=== PATIENT | male | born 1955 | race Caucasian/White ===

== ENCOUNTER 2016-05-19 12:10 | Emergency (ER) | payer MEDICARE, OTHER ==
--- NOTE | 2016-05-19 13:42 | RAD ---
THREE VIEWS RIGHT SHOULDER: History: Fall, right shoulder pain. FINDINGS: AP internally/externally scapular Y views of the right shoulder obtained. Images demonstrate no evidence of right shoulder fractures, subluxations, or bony lesions. IMPRESSION: Normal three views right shoulder. POS: [facility]
== END 2016-05-19 13:25 | disposition home or self-care (01) ==
LOC: NAV ERS 12:10
DX: S40.011A Contusion of right shoulder, initial encounter (principal); I10 Essential (primary) hypertension; J45.909 Unspecified asthma, uncomplicated; F17.210 Nicotine dependence, cigarettes, uncomplicated; Z79.899 Other long term (current) drug therapy; W19.XXXA Unspecified fall, initial encounter

== ENCOUNTER 2016-06-03 19:54 | Emergency (ER) | payer MEDICARE, OTHER ==
[2016-06-03 20:50] LABS: Bilirubin Negative (Negative); Blood, Urine Trace (Negative); Glucose, Urine (Dipstick) Negative (Negative); Ketone, Urine Negative (Negative); Nitrite Negative (Negative); Protein, Urine (Dipstick) Negative (Neg-Trace); Urobilinogen 0.2 mg/dL (0.2-1.0)
[2016-06-03 20:57] LABS: Bacteria/HPF Rare-Few HPF (None Seen); RBC/HPF 0-3 HPF (0-3); Squamous Epithelial None Seen HPF (0-3); WBC/HPF None Seen HPF (0-3)
[2016-06-03 21:09] LABS: #Basophils 0.1 thou/uL (0.0-0.2); #Eosinphils 0.3 thou/uL (0.0-0.7); #Lymphocytes 2.8 thou/uL (1.20-3.40); #Monocytes 0.9 thou/uL (0.11-0.59); %Basophils 1.3 % (0.0-1.0); %Eosinophils 2.8 % (0.0-10.0); %Monocytes 9.6 % (0.0-10.0); Hematocrit 39.3 % (42.0-52.0); Red Blood Cell (RBC) Count 4.15 mill/uL (4.70-6.10); White Blood Cell (WBC) Count 9.1 thou/uL (4.8-10.8)
[2016-06-03] MEDS ORDERED: Sodium Chloride 0.9% 1,000 ML ONE (21:09)
[2016-06-03] MEDS ORDERED: Ketorolac Tromethamine 30 MG/ML VIAL ONE (21:09)
[2016-06-03 21:27] LABS: ALT (SGPT) 15 U/L (0-55); AST (SGOT) 17 U/L (5-34); Alkaline Phosphatase 95 U/L (40-150); Anion Gap 16 mmol/L (10-20); BUN (Urea Nitrogen) 15 mg/dL (8.4-25.7); Bilirubin, Total 0.3 mg/dL (0.2-1.2); Calc. Creatinine Clearance 0 mL/min (70-130); Calcium 8.8 mg/dL (7.8-10.44); Carbon Dioxide 21 mmol/L (22-29); Chloride 98 mmol/L (98-107); Estimated GFR-MDRD Greater than 90; Globulin 2.9 g/dL (2.4-3.5); Lipase 10 U/L (8-78)
--- NOTE | 2016-06-03 23:47 | CT ---
CT ABDOMEN AND PELVIS 06/03/2016 PROVIDED CLINICAL HISTORY: Bilateral flank pain. FINDINGS: The visualized lung bases are free of significant opacity. The solid abdominal organs are suboptimally evaluated without IV contrast but demonstrate an unremar kable unenhanced CT appearance. No evidence for urinary tract calculi or hydronephrosis. There is conspicuous colonic fecal retention suggesting constipation. There is no evidence for gauri l obstruction. Sigmoid colon and descending colon diverticula are seen without CT evidence for dive rticulitis. The appendix appears normal. Vascular calcifications are noted involving the abdominal aorta and its branches. Stent material involves the right external iliac artery. The osseous structures demonstrate no concerning osteoblastic or osteolytic lesions. IMPRESSION: 1. No evidence for urinary tract calculi or hydronephrosis. 2. Findings suggesting constipation. POS: [facility]
== END 2016-06-03 22:23 | disposition home or self-care (01) ==
LOC: NAV ERS 19:54
DX: M54.5 Low back pain (principal); F17.210 Nicotine dependence, cigarettes, uncomplicated; Z79.891 Long term (current) use of opiate analgesic; Z79.899 Other long term (current) drug therapy
CPT/HCPCS: 74176; 80053; 81003; 81015; 83690; 85025; 96361; 96374; J1885; J7050

== ENCOUNTER 2016-09-07 14:14 | Emergency (ER) | payer MEDICARE, OTHER ==
[2016-09-07] MEDS ORDERED: Sodium Chloride 0.9% 1,000 ML ONE ×2 (14:44→16:24)
[2016-09-07 15:31] LABS: #Basophils 0.1 thou/uL (0.0-0.2); #Eosinphils 0.2 thou/uL (0.0-0.7); #Lymphocytes 1.3 thou/uL (1.20-3.40); #Monocytes 0.8 thou/uL (0.11-0.59); #Neutrophils 11.9 thou/uL (1.40-6.50); %Basophils 0.6 % (0.0-1.0); %Eosinophils 1.3 % (0.0-10.0); %Lymphocytes 9.2 % (21.0-51.0); %Monocytes 5.3 % (0.0-10.0); %Neutrophils 83.5 % (42.0-75.0); Hemoglobin 14.2 g/dL (14.0-18.0); Mean Corpuscular HGB CONC 34.4 g/dL (32.0-36.0); Mean Corpuscular Hemoglobin 32.2 pg (27.0-31.0); Mean Corpuscular Volume 93.8 fl (80.0-94.0); Mean Platelet Volume 7.2 fL (7.4-10.4); Platelet Count 235 thou/uL (130-400); RBC Distribution Width 10.9 % (11.5-14.5); White Blood Cell (WBC) Count 14.2 thou/uL (4.8-10.8)
--- NOTE | 2016-09-07 15:38 | CT ---
CT HEAD WITHOUT CONTRAST: Technique: Multiple axial tomograms were obtained through the head without IV enhancement. History: Weakness. Comparison: CT 11-30-14 FINDINGS: Ventricles have normal size and position. No evidence of mass, hemorrhage, or acute cortical infarct . Sinuses and mastoids are well aerated. IMPRESSION: No evidence of acute abnormality. POS: [facility]
[2016-09-07 15:46] LABS: CKMB 2.2 ng/mL (0-6.6); Troponin I Less than 0.010 ng/mL (< 0.028)
[2016-09-07 15:51] LABS: INR-International Normal Ratio 1.1; PTT 28.8 SEC (22.9-36.1); Prothrombin Time 13.8 SEC (12.0-14.7)
[2016-09-07 16:00] LABS: ALT (SGPT) 14 U/L (8-55); AST (SGOT) 16 U/L (5-34); Albumin 3.7 g/dL (3.5-5.0); Alkaline Phosphatase 91 U/L (40-150); Anion Gap 12 mmol/L (10-20); BUN (Urea Nitrogen) 15 mg/dL (8.4-25.7); Bilirubin, Total 0.4 mg/dL (0.2-1.2); CK (CPK) 69 U/L (30-200); Calc. Creatinine Clearance 0 mL/min (70-130); Calcium 8.2 mg/dL (7.8-10.44); Carbon Dioxide 23 mmol/L (22-29); Chloride 99 mmol/L (98-107); Estimated GFR-MDRD Greater than 90; Globulin 2.6 g/dL (2.4-3.5); Glucose 99 mg/dL (70-105); Protein, Total 6.3 g/dL (6.0-8.3); Sodium 130 mmol/L (136-145)
--- NOTE | 2016-09-07 16:23 | RAD ---
PORTABLE CHEST: History: Weakness. FINDINGS: Lungs appear clear of infiltrate. Perhaps some mild atelectatic changes in the left lung base. CP an gles are sharp. Heart size is normal. Mild aortic calcification. IMPRESSION: No evidence of acute process. POS: [facility]
[2016-09-07] MEDS ORDERED: Acetaminophen 500 MG TAB ONE (16:24)
== END 2016-09-07 16:55 | disposition home or self-care (01) ==
LOC: NAV ERS 14:14
DX: E86.0 Dehydration (principal); E87.1 Hypo-osmolality and hyponatremia; R53.1 Weakness; I73.9 Peripheral vascular disease, unspecified; I10 Essential (primary) hypertension; J45.909 Unspecified asthma, uncomplicated; F17.210 Nicotine dependence, cigarettes, uncomplicated; Z79.899 Other long term (current) drug therapy; Z79.891 Long term (current) use of opiate analgesic
CPT/HCPCS: 36415; 70450; 71010; 80053; 82553; 83880; 84484; 85025; 85610; 85730; 93005; 94760; 96360; J7050

== ENCOUNTER 2016-10-02 13:34 | Emergency (ER) | payer MEDICARE, OTHER ==
[2016-10-02] MEDS ORDERED: Lidocaine Viscous Sol 2% 15 ml UD Cup ONE (14:13)
[2016-10-02] MEDS ORDERED: Mag-Al Plus 1200 MG/1200 MG/120 MG/30 ML UDCUP ONE (14:13)
[2016-10-02] MEDS ORDERED: Pantoprazole 40 MG VIAL ONE (14:13)
[2016-10-02] MEDS ORDERED: Ondansetron HCl/PF 4 MG/2 ML Vial ONE (14:19)
[2016-10-02 14:46] LABS: #Basophils 0.1 thou/uL (0.0-0.2); #Eosinphils 0.3 thou/uL (0.0-0.7); #Lymphocytes 1.6 thou/uL (1.20-3.40); #Monocytes 0.7 thou/uL (0.11-0.59); #Neutrophils 4.9 thou/uL (1.40-6.50); %Basophils 1.1 % (0.0-1.0); %Eosinophils 3.4 % (0.0-10.0); %Lymphocytes 21.9 % (21.0-51.0); %Monocytes 8.8 % (0.0-10.0); %Neutrophils 64.8 % (42.0-75.0); Hemoglobin 14.7 g/dL (14.0-18.0); Mean Corpuscular HGB CONC 33.5 g/dL (32.0-36.0); Mean Corpuscular Hemoglobin 31.6 pg (27.0-31.0); Mean Corpuscular Volume 94.2 fl (80.0-94.0); Platelet Count 254 thou/uL (130-400); RBC Distribution Width 10.9 % (11.5-14.5); Red Blood Cell (RBC) Count 4.65 mill/uL (4.70-6.10); White Blood Cell (WBC) Count 7.5 thou/uL (4.8-10.8)
--- NOTE | 2016-10-02 14:51 | RAD ---
TWO VIEWS ABDOMEN UPRIGHT VIEW OF THE CHEST: History: Burning sensation in the abdomen. FINDINGS: Supine and upright views of the abdomen and upright view of the chest shows nonspecific, nonobstruct ed bowel gas pattern. A moderate amount of stool retention is seen in the colon. Air is seen in the rectum. No free air or airfluid levels are seen on the upright examination. The cardiomediastinal silhouette is normal in size with atherosclerotic calcifications in the aorta. There is no evidence of consolidation, mass, or pleural effusion. IMPRESSION: 1. No evidence of obstruction. 2. Moderate stool retention in the colon. POS: [facility]
[2016-10-02 15:01] LABS: ALT (SGPT) 10 U/L (8-55); AST (SGOT) 16 U/L (5-34); Albumin 4.4 g/dL (3.5-5.0); Alkaline Phosphatase 101 U/L (40-150); Anion Gap 14 mmol/L (10-20); BUN (Urea Nitrogen) 20 mg/dL (8.4-25.7); Bilirubin, Total 0.4 mg/dL (0.2-1.2); Calc. Creatinine Clearance 0 mL/min (70-130); Carbon Dioxide 24 mmol/L (22-29); Chloride 98 mmol/L (98-107); Estimated GFR-MDRD 79; Globulin 2.9 g/dL (2.4-3.5); Glucose 110 mg/dL (70-105); Lipase 12 U/L (8-78); Potassium 4.2 mmol/L (3.5-5.1); Protein, Total 7.3 g/dL (6.0-8.3); Sodium 132 mmol/L (136-145)
[2016-10-02 15:02] LABS: Troponin I 0.015 ng/mL (< 0.028)
[2016-10-02 16:47] LABS: CKMB 2.2 ng/mL (0-6.6); Troponin I 0.016 ng/mL (< 0.028)
== END 2016-10-02 17:04 | disposition home or self-care (01) ==
LOC: NAV ERS 13:34
DX: K29.00 Acute gastritis without bleeding (principal); K21.9 Gastro-esophageal reflux disease without esophagitis; K59.00 Constipation, unspecified; Z79.899 Other long term (current) drug therapy; Z79.891 Long term (current) use of opiate analgesic; E78.5 Hyperlipidemia, unspecified; J45.909 Unspecified asthma, uncomplicated; M19.90 Unspecified osteoarthritis, unspecified site; F17.210 Nicotine dependence, cigarettes, uncomplicated
CPT/HCPCS: 74022; 80053; 82150; 82553; 83690; 84484; 85025; 93005; 96374; 96375; C9113; J2405

== ENCOUNTER 2016-12-26 02:25 | Emergency (ER) | payer MEDICARE ==
[2016-12-26] MEDS ORDERED: Lidocaine Viscous Sol 2% 15 ml UD Cup ONE (03:06)
[2016-12-26] MEDS ORDERED: Mag-Al Plus 1200 MG/1200 MG/120 MG/30 ML UDCUP ONE ×2 (03:06→03:07)
[2016-12-26] MEDS ORDERED: Lorazepam 1 MG TAB ONE (03:09)
== END 2016-12-26 03:55 | disposition home or self-care (01) ==
LOC: NAV ERS 02:25
DX: F41.9 Anxiety disorder, unspecified (principal); K21.9 Gastro-esophageal reflux disease without esophagitis; M19.90 Unspecified osteoarthritis, unspecified site; F17.210 Nicotine dependence, cigarettes, uncomplicated; I10 Essential (primary) hypertension; J45.909 Unspecified asthma, uncomplicated; I73.9 Peripheral vascular disease, unspecified; E78.5 Hyperlipidemia, unspecified; Z79.899 Other long term (current) drug therapy
CPT/HCPCS: 99284

== ENCOUNTER 2017-02-17 15:46 | Emergency (ER) | payer MEDICARE ==
[2017-02-17] MEDS ORDERED: Promethazine HCl 25 MG/ML VIAL ONE (16:00)
[2017-02-17] MEDS ORDERED: Morphine 4 MG/ML Carpuject ONE (16:01)
== END 2017-02-17 16:51 | disposition home or self-care (01) ==
LOC: NAV ERS 15:46
DX: G89.29 Other chronic pain (principal); M54.5 Low back pain; J44.9 Chronic obstructive pulmonary disease, unspecified; E78.5 Hyperlipidemia, unspecified; I10 Essential (primary) hypertension; Z79.899 Other long term (current) drug therapy
CPT/HCPCS: 96372; J2270; J2550

== ENCOUNTER 2018-04-14 17:04 | Emergency (ER) | payer MEDICARE, MEDICAID ==
[2018-04-14] MEDS ORDERED: HYDROcodone/Acetaminophen 5/325 mg Tablet ONE (17:57)
--- NOTE | 2018-04-14 18:20 | RAD ---
LEFT FOOT RADIOGRAPHS THREE VIEWS 04/14/18 PROVIDED CLINICAL HISTORY: Left foot pain status post injury. FINDINGS: No evidence for fracture or other acute osseous abnormality. If there is persistent clinical concern, conservative management and followup imaging are advised. IMPRESSION: As above. POS: [facility]
== END 2018-04-14 17:58 | disposition home or self-care (01) ==
LOC: NAV ERS 17:04
DX: S90.32XA Contusion of left foot, initial encounter (principal); J44.9 Chronic obstructive pulmonary disease, unspecified; E78.5 Hyperlipidemia, unspecified; I10 Essential (primary) hypertension; F41.9 Anxiety disorder, unspecified; F17.210 Nicotine dependence, cigarettes, uncomplicated; Z79.899 Other long term (current) drug therapy; W55.29XA Other contact with cow, initial encounter

== ENCOUNTER 2018-05-13 14:38 | Emergency (ER) | payer MEDICARE, MEDICAID, OTHER ==
[2018-05-13] MEDS ORDERED: Ketorolac Tromethamine 30 MG/ML VIAL ONE (15:15)
[2018-05-13 15:38] LABS: #Basophils 0.1 thou/uL (0.0-0.2); #Eosinphils 0.3 thou/uL (0.0-0.7); #Lymphocytes 1.8 thou/uL (1.20-3.40); #Monocytes 0.5 thou/uL (0.11-0.59); #Neutrophils 3.9 thou/uL (1.40-6.50); %Basophils 1.5 % (0.0-1.0); %Eosinophils 4.6 % (0.0-10.0); %Lymphocytes 27.4 % (21.0-51.0); %Monocytes 7.7 % (0.0-10.0); %Neutrophils 58.8 % (42.0-75.0); Hemoglobin 14.2 g/dL (14.0-18.0); Mean Corpuscular Hemoglobin 32.6 pg (27.0-31.0); Mean Platelet Volume 6.2 fL (7.4-10.4); Platelet Count 264 thou/uL (130-400); RBC Distribution Width 11.4 % (11.5-14.5); Red Blood Cell (RBC) Count 4.34 mill/uL (4.70-6.10); White Blood Cell (WBC) Count 6.7 thou/uL (4.8-10.8)
[2018-05-13 15:46] LABS: Anion Gap 14 mmol/L (10-20); BUN (Urea Nitrogen) 8 mg/dL (8.4-25.7); Calc. Creatinine Clearance 0 mL/min (70-130); Calcium 9.2 mg/dL (7.8-10.44); Carbon Dioxide 20 mmol/L (22-29); Chloride 102 mmol/L (98-107); Estimated GFR-MDRD 82; Glucose 102 mg/dL (70-105); Potassium 4.1 mmol/L (3.5-5.1); Sodium 132 mmol/L (136-145)
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
== END 2018-05-13 17:15 | disposition home or self-care (01) ==
LOC: NAV ERS 14:38
DX: S13.4XXA Sprain of ligaments of cervical spine, initial encounter (principal); S33.5XXA Sprain of ligaments of lumbar spine, initial encounter; J44.9 Chronic obstructive pulmonary disease, unspecified; E78.5 Hyperlipidemia, unspecified; I10 Essential (primary) hypertension; J45.909 Unspecified asthma, uncomplicated; F41.0 Panic disorder [episodic paroxysmal anxiety]; F17.210 Nicotine dependence, cigarettes, uncomplicated; Z79.899 Other long term (current) drug therapy; V49.9XXA Car occupant (driver) (passenger) injured in unspecified traffic accident, initial encounter
CPT/HCPCS: 70450; 72125; 74176; 80048; 85025; 96374; J1885

== ENCOUNTER 2018-08-21 12:40 | Outpatient (CLI) | payer MEDICARE, OTHER ==
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
--- NOTE | 2018-08-21 13:12 | RAD ---
Sacrum and coccyx 3 views: HISTORY: Fall, low back pain FINDINGS: No acute fracture or subluxation is seen.
== END 2018-08-21 12:41 | disposition home or self-care (01) ==
LOC: NAV RAD 12:40
PROVIDERS: ATTEND Nurse Practitioner Adult Health
DX: M54.5 Low back pain (principal)
CPT/HCPCS: 72100; 72220

== ENCOUNTER 2018-10-16 15:58 | Outpatient (CLI) | payer MEDICARE, OTHER ==
--- NOTE | 2018-10-16 18:27 | ULT ---
BILATERAL LOWER EXTREMITY VENOUS DUPLEX STUDY: 10/16/18 Deep veins of both lower extremities evaluated with color Doppler, spectral analysis and compression. INDICATIONS: Lower extremity pain and edema. Deep veins of both lower extremities show normal blood flow and compression. No evidence of DVT. There are multiple bilateral inguinal lymph nodes which appear mildly enlarged. IMPRESSION: 1. No evidence of DVT. 2. Bilateral inguinal adenopathy. POS: [facility]
== END 2018-10-16 15:59 | disposition home or self-care (01) ==
LOC: NAV ULT 15:58
PROVIDERS: ATTEND Internal Medicine
DX: R60.0 Localized edema (principal); R59.0 Localized enlarged lymph nodes
CPT/HCPCS: 93970

== ENCOUNTER 2019-06-06 00:11 | Emergency (ER) | payer MEDICARE, OTHER | END 2019-06-06 03:05 | disposition home or self-care (01) | LOC: NAV ERS 00:11 | DX: R60.0 Localized edema (principal); J44.9 Chronic obstructive pulmonary disease, unspecified; I73.9 Peripheral vascular disease, unspecified; F41.0 Panic disorder [episodic paroxysmal anxiety]; F41.9 Anxiety disorder, unspecified; E78.5 Hyperlipidemia, unspecified; E78.00 Pure hypercholesterolemia, unspecified; M19.90 Unspecified osteoarthritis, unspecified site; J45.909 Unspecified asthma, uncomplicated; F17.210 Nicotine dependence, cigarettes, uncomplicated; Z79.891 Long term (current) use of opiate analgesic; Z79.899 Other long term (current) drug therapy | CPT/HCPCS: 85379; 99283 ==

== ENCOUNTER 2020-02-07 18:17 | Emergency (ER) | payer MEDICARE, OTHER ==
[2020-02-07] MEDS ORDERED: Ondansetron ODT 4 MG TAB ONE ×2 (19:03→19:06)
[2020-02-09 10:24] LABS: SARS-CoV-2 MS2 Positive; SARS-CoV-2 N Gene Positive; SARS-CoV-2 S Gene Positive; SARS-CoV-2 by NAA DETECTED (NotDetected); SARS-CoV-2 orf1ab Positive
== END 2020-02-07 19:10 | disposition home or self-care (01) ==
LOC: NAV ERS 18:17
DX: U07.1 COVID-19 (principal); J44.9 Chronic obstructive pulmonary disease, unspecified; E78.5 Hyperlipidemia, unspecified; E78.00 Pure hypercholesterolemia, unspecified; I10 Essential (primary) hypertension; F41.0 Panic disorder [episodic paroxysmal anxiety]; F17.210 Nicotine dependence, cigarettes, uncomplicated; Z79.899 Other long term (current) drug therapy
CPT/HCPCS: 99283; U0003; 87635; Q0162

== ENCOUNTER 2021-03-07 21:32 | Emergency (ER) | payer MEDICARE, OTHER | END 2021-03-07 23:20 | disposition home or self-care (01) | LOC: NAV ERS 21:32 | DX: S22.42XA Multiple fractures of ribs, left side, initial encounter for closed fracture (principal); S63.631A Sprain of interphalangeal joint of left index finger, initial encounter; S63.633A Sprain of interphalangeal joint of left middle finger, initial encounter; G89.4 Chronic pain syndrome; F11.90 Opioid use, unspecified, uncomplicated; I10 Essential (primary) hypertension; J44.9 Chronic obstructive pulmonary disease, unspecified; E78.5 Hyperlipidemia, unspecified; F17.210 Nicotine dependence, cigarettes, uncomplicated; Z79.899 Other long term (current) drug therapy; W18.30XA Fall on same level, unspecified, initial encounter | CPT/HCPCS: 72125 ==

== ENCOUNTER 2021-05-21 19:22 | Emergency (ER) | payer MEDICARE, OTHER ==
[2021-05-21] MEDS ORDERED: Sodium Chloride 0.9% 1,000 ML ONE (20:00)
[2021-05-21] MEDS ORDERED: Sodium Chloride 0.9% 100 ML ONE (20:00)
[2021-05-21] MEDS ORDERED: Cefepime 2 GM VIAL ONE (20:00)
[2021-05-21 20:23] LABS: ALT (SGPT) 71 U/L (8-55); AST (SGOT) 82 U/L (5-34); Albumin 3.7 g/dL (3.4-4.8); Alkaline Phosphatase 94 U/L (40-110); Anion Gap 12 mmol/L (10-20); BUN (Urea Nitrogen) 17 mg/dL (8.4-25.7); Bilirubin, Total 0.2 mg/dL (0.2-1.2); CK (CPK) 66 U/L (30-200); Calc. Creatinine Clearance 0 mL/min (70-130); Calcium 8.6 mg/dL (7.8-10.44); Carbon Dioxide 25 mmol/L (23-31); Chloride 101 mmol/L (98-107); Globulin 3.1 g/dL (2.4-3.5); Glucose 100 mg/dL (80-115); Potassium 3.6 mmol/L (3.5-5.1); Protein, Total 6.8 g/dL (5.8-8.1); Sodium 134 mmol/L (136-145)
[2021-05-21 20:29] LABS: Band 2 % (5-11); Hemoglobin 13.1 g/dL (14.0-18.0); Lymphocytes 7 % (21-51); MDiff Complete? YES; Mean Corpuscular HGB CONC 32.2 g/dL (32.0-36.0); Mean Corpuscular Hemoglobin 32.6 pg (27.0-31.0); Monocytes 4 % (0-10); Neutrophil 85 % (42-75); Platelet Count 200 thou/uL (130-400); Platelet Morphology Comment Appears Adequate; Reactive Lymphocytes 2 % (0-10); Red Blood Cell (RBC) Count 4.02 mill/uL (4.70-6.10); White Blood Cell (WBC) Count 11.1 thou/uL (4.8-10.8)
[2021-05-21 20:49] LABS: SARS-CoV-2 NAA Rapid Test Not Detected (NotDetected)
== END 2021-05-21 20:52 | disposition short-term general hospital (02) ==
LOC: NAV ERS 19:22
DX: I89.1 Lymphangitis (principal); J44.9 Chronic obstructive pulmonary disease, unspecified; E78.5 Hyperlipidemia, unspecified; J45.909 Unspecified asthma, uncomplicated; F17.210 Nicotine dependence, cigarettes, uncomplicated; Z79.899 Other long term (current) drug therapy
CPT/HCPCS: 73630; 80053; 82550; 83605; 84484; 85025; 87040; 93005; 96365; 99284; U0002; J0692; J3490; J7050

== ENCOUNTER 2021-10-07 11:44 | Emergency (ER) | payer MEDICARE, OTHER ==
[2021-10-07 12:30] LABS: #Basophils 0.1 thou/uL (0.0-0.2); #Eosinphils 0.4 thou/uL (0.0-0.7); #Lymphocytes 1.7 thou/uL (1.20-3.40); #Monocytes 0.5 thou/uL (0.11-0.59); #Neutrophils 3.5 thou/uL (1.40-6.50); %Basophils 1.3 % (0.0-1.0); %Eosinophils 5.6 % (0.0-10.0); %Lymphocytes 27.8 % (21.0-51.0); %Monocytes 8.7 % (0.0-10.0); %Neutrophils 56.6 % (42.0-75.0); Hemoglobin 13.1 g/dL (14.0-18.0); Mean Corpuscular HGB CONC 31.3 g/dL (32.0-36.0); Mean Corpuscular Hemoglobin 32.1 pg (27.0-31.0); Mean Platelet Volume 7.4 fL (7.4-10.4); Platelet Count 277 thou/uL (130-400); Red Blood Cell (RBC) Count 4.09 mill/uL (4.70-6.10); White Blood Cell (WBC) Count 6.2 thou/uL (4.8-10.8)
[2021-10-07 12:33] LABS: Anion Gap 14 mmol/L (10-20); BUN (Urea Nitrogen) 11 mg/dL (8.4-25.7); CRP (Inflammatory) Less than 0.50 mg/dL (= or < 0.5); Calc. Creatinine Clearance 0 mL/min (70-130); Calcium 8.9 mg/dL (7.8-10.44); Carbon Dioxide 22 mmol/L (23-31); Chloride 106 mmol/L (98-107); Estimated GFR 99; Glucose 114 mg/dL (80-115); Potassium 4.1 mmol/L (3.5-5.1); Sodium 138 mmol/L (136-145)
== END 2021-10-07 13:06 | disposition home or self-care (01) ==
LOC: NAV ERS 11:44
DX: S93.501A Unspecified sprain of right great toe, initial encounter (principal); I89.0 Lymphedema, not elsewhere classified; J44.9 Chronic obstructive pulmonary disease, unspecified; E78.5 Hyperlipidemia, unspecified; E78.00 Pure hypercholesterolemia, unspecified; I10 Essential (primary) hypertension; F17.210 Nicotine dependence, cigarettes, uncomplicated; X58.XXXA Exposure to other specified factors, initial encounter; Z86.711 Personal history of pulmonary embolism
CPT/HCPCS: 80048; 85025; 86140

== ENCOUNTER 2022-06-08 13:31 | Emergency (ER) | payer MEDICARE, OTHER ==
[2022-06-08] MEDS ORDERED: Ibuprofen 200 MG TAB ONE (14:55)
== END 2022-06-08 15:12 | disposition home or self-care (01) ==
LOC: NAV ERS 13:31
DX: S16.1XXA Strain of muscle, fascia and tendon at neck level, initial encounter (principal); S00.93XA Contusion of unspecified part of head, initial encounter; J44.9 Chronic obstructive pulmonary disease, unspecified; E78.00 Pure hypercholesterolemia, unspecified; I10 Essential (primary) hypertension; F17.210 Nicotine dependence, cigarettes, uncomplicated; Z79.899 Other long term (current) drug therapy; W20.8XXA Other cause of strike by thrown, projected or falling object, initial encounter
CPT/HCPCS: 70450; 72125; 72128

== ENCOUNTER 2022-07-06 00:07 | Emergency (ER) | payer MEDICARE, OTHER | END 2022-07-06 00:55 | disposition left against medical advice (07) | LOC: NAV ERS 00:07 | DX: F41.0 Panic disorder [episodic paroxysmal anxiety] (principal); M79.89 Other specified soft tissue disorders; J44.9 Chronic obstructive pulmonary disease, unspecified; E78.00 Pure hypercholesterolemia, unspecified; I10 Essential (primary) hypertension; F17.210 Nicotine dependence, cigarettes, uncomplicated; I73.9 Peripheral vascular disease, unspecified; Z95.5 Presence of coronary angioplasty implant and graft; Z79.899 Other long term (current) drug therapy | CPT/HCPCS: 99283 ==